=== PATIENT | male | born 1935 | race Caucasian/White ===

== ENCOUNTER 2018-09-13 19:42 | Outpatient (CLI) | payer MEDICARE, BC | END 2018-09-13 19:43 | disposition short-term general hospital (02) | LOC: EMS 19:42 | PROVIDERS: ATTEND Surgery | DX: R53.83 Other fatigue (principal); R53.1 Weakness; R63.0 Anorexia | CPT/HCPCS: A0425; A0429 ==

== ENCOUNTER 2018-09-27 12:15 | Outpatient (CLI) | payer MEDICARE, BC ==
--- NOTE | 2018-09-27 15:49 | MRI Report ---
Reason: IMPAIRMENT OF BALANCE Procedure Date: 09/27/2018 Accession Number: [id number] / [id number] Procedure: MRI - Brain W/O CPT Code: FULL RESULT: EXAM: MRI BRAIN WITHOUT CONTRAST EXAM DATE: 09/27/2018 01:12 PM. CLINICAL HISTORY: IMPAIRMENT OF BALANCE. COMPARISON: None. TECHNIQUE: Multiplanar, multisequence T1-weighted and fluid-sensitive MR sequences of the brain were performed. Sequences optimized for routine evaluation. Other: None. IV Contrast: None. FINDINGS: The diffusion-weighted images are normal. There is no evidence of acute or subacute cerebral infarction. The FLAIR images demonstrate a few punctuate T2 hyperintensities within the subcortical, deep, and periventricular white matter. This is consistent with a minimal degree of chronic small vessel ischemia. There is enlargement of the lateral ventricles and the third ventricle but not out of proportion to the enlargement of the cerebral sulci. This is consistent with a mild degree of generalized volume loss. The T2* sequence is normal. There is no evidence of subacute or chronic hemorrhage. The corpus callosum is of normal size and configuration. The pituitary and sella are normal. The craniocervical junction is normal. The optic nerves demonstrate symmetric signal intensity and size. The cerebral vascular flow voids are patent. The bilateral parotid spaces exhibit normal signal intensity. The imaged portions of the paranasal sinuses are normally aerated. There is a normal appearance of the nerve exit zone, cisternal and internal auditory canal segments of the bilateral 7th and 8th cranial nerves. There is a normal appearance of the nerve exit zone and cisternal segments of the bilateral trigeminal nerve and Meckel's cave. IMPRESSION: 1. There is no evidence of acute or subacute cerebral infarction. 2. There is minimal degree of chronic small vessel ischemia and mild degree of generalized volume loss. 3. There is no evidence of brain mass. 4. There is a normal appearance of the course of the bilateral fifth, seventh, and eighth cranial nerves. There is no cerebellopontine angle mass or internal auditory canal mass .
== END 2018-09-27 12:16 | disposition home or self-care (01) ==
LOC: DI 12:15
PROVIDERS: ATTEND Physician Assistant
DX: R26.89 Other abnormalities of gait and mobility (principal); I67.82 Cerebral ischemia
CPT/HCPCS: 70551

== ENCOUNTER 2020-10-14 13:38 | Outpatient (CLI) | payer MEDICARE, BC ==
[2020-10-14 20:03] LABS: BASOPHILS % (AUTO) 0.3 %; EOSINOPHILS % (AUTO) 0.5 %; HCT - HEMATOCRIT 45.9 % (42.0-52.0); HGB - HEMOGLOBIN 15.2 g/dL (14.0-18.0); LYMPHOCYTES # (AUTO) 1.2 10^3/uL (1.5-3.5); LYMPHOCYTES % (AUTO) 21.2 %; MEAN CORPUSCULAR HEMOGLOBIN 31.3 pg (27.0-31.0); MEAN CORPUSCULAR HGB CONC 33.1 g/dL (32.0-36.0); MEAN CORPUSCULAR VOLUME 94.6 fL (80.0-94.0); MEAN PLATELET VOLUME 10.1 fL (7.4-11.4); MONOCYTES # (AUTO) 0.4 10^3/uL (0.0-1.0); MONOCYTES % (AUTO) 7.5 %; NEUTROPHILS # (AUTO) 4.1 10^3/uL (1.5-6.6); NEUTROPHILS % (AUTO) 70.3 %; PLT - PLATELET COUNT 214 10^3/uL (130-450); RED BLOOD COUNT 4.85 10^6/uL (4.70-6.10); WHITE BLOOD COUNT 5.8 x10^3/uL (4.8-10.8)
[2020-10-14 20:21] LABS: ALBUMIN 3.8 g/dL (3.2-5.5); ALBUMIN/GLOBULIN RATIO 1.2 (1.0-2.2); ALKALINE PHOSPHATASE 77 IU/L (42-121); ALT ALANINE AMINOTRANSFERASE 19 IU/L (10-60); AST ASPARTATE AMINOTRANSFERASE 22 IU/L (10-42); BILIRUBIN,TOTAL 0.7 mg/dL (0.2-1.0); BUN - BLOOD UREA NITROGEN 11 mg/dL (6-20); CALCIUM 8.8 mg/dL (8.5-10.3); CARBON DIOXIDE - CO2 30 mmol/L (21-32); CHLORIDE 99 mmol/L (101-111); CHOL/HDL RATIO 4.5 (<5.0); CHOLESTEROL 230 mg/dL; CREATININE 0.7 mg/dL (0.6-1.2); GFR - MDRD 108 (>89); GLUCOSE 158 mg/dL (70-100); HDL CHOLESTEROL 51 mg/dL; LDL CHOLESTEROL,CALCULATED 139 mg/dL; LDL/HDL RATIO 2.7 (<3.6); POTASSIUM 4.1 mmol/L (3.5-5.0); SODIUM 138 mmol/L (135-145); TOTAL PROTEIN 6.9 g/dL (6.7-8.2); TRIGLYCERIDES 202 mg/dL; VLDL CHOLESTEROL 40 mg/dL
[2020-10-14 20:29] LABS: PSA TOTAL 0.62 ng/mL (0.000-2.000)
== END 2020-10-14 13:39 | disposition home or self-care (01) ==
LOC: LAB.S 13:38
PROVIDERS: ATTEND Nurse Practitioner Family
DX: R42 Dizziness and giddiness (principal); E78.5 Hyperlipidemia, unspecified; Z51.81 Encounter for therapeutic drug level monitoring; N40.0 Benign prostatic hyperplasia without lower urinary tract symptoms
CPT/HCPCS: 36415; 80053; 80061; 82306; 83721; 84153; 85025

== ENCOUNTER 2020-11-28 15:42 | Outpatient (CLI) | payer MEDICARE, BC | END 2020-11-28 15:43 | disposition home or self-care (01) | LOC: COV 15:42 | PROVIDERS: ATTEND Internal Medicine Cardiovascular Disease | DX: Z01.812 Encounter for preprocedural laboratory examination (principal); Z20.822 Contact with and (suspected) exposure to COVID-19 ==

== ENCOUNTER 2021-04-15 15:49 | Outpatient (CLI) | payer MEDICARE, BC ==
--- NOTE | 2021-04-16 11:45 | XRAY Report ---
PROCEDURE: Lumbar Spine 2 View INDICATIONS: LOW BACK PAIN TECHNIQUE: 3 views of the lumbar spine were acquired. COMPARISON: None. FINDINGS: Bones: There is transitional anatomy with 4 [id number] vertebrae present and sacralization of L 5. Rudimentary disc is present at L5-S1. There is mild grade 1 anterolisthesis at L4-5. Minimal list hesis demonstrated at T12-L1 and L1-L2. No vertebral body compression fractures. No other definite fr actures identified. There is multilevel mild to moderate degenerative disc disease throughout the lum bar spine. There is also moderate facet arthropathy in the lower lumbar spine is prominent L4-5. No s uspicious bony lesions. Soft tissues: Overlying bowel gas pattern is normal. There are diffuse vascular calcifications. IMPRESSION: 1. No acute fractures identified. 2. Transitional anatomy with sacralization of L5. 3. Mild grade 1 anterolisthesis at L4-5 without a displaced pars defect identified. 4. Minimal retrolisthesis at T12-L1 and L1-L2. Reviewed by: Abhi Puri MD on 04/16/2021 11:44 AM PST Approved by: Abhi Puri MD on 04/16/2021 11:44 AM PST Station ID: [id number]
== END 2021-04-15 15:50 | disposition home or self-care (01) ==
LOC: DI.S 15:49
PROVIDERS: ATTEND Physician Assistant
DX: M51.36 Other intervertebral disc degeneration, lumbar region (principal); M47.816 Spondylosis without myelopathy or radiculopathy, lumbar region; M43.16 Spondylolisthesis, lumbar region; M43.15 Spondylolisthesis, thoracolumbar region

== ENCOUNTER 2022-08-27 12:13 | Outpatient (CLI) | payer MEDICARE, BC ==
[2022-08-27] MEDS ORDERED: iohexoL-300 100 ML VIAL ONE (12:40)
[2022-08-27 12:48] LABS: ALBUMIN 3.6 g/dL (3.2-5.5); ALBUMIN/GLOBULIN RATIO 1.2 (1.0-2.2); CALCIUM 8.8 mg/dL (8.5-10.3); CREATININE 0.8 mg/dL (0.6-1.2); TOTAL PROTEIN 6.6 g/dL (6.7-8.2)
--- NOTE | 2022-08-27 14:28 | CT Report ---
PROCEDURE: ANGIO CHEST W/WO INDICATIONS: ELEVATED D DIMER CONTRAST: 80ml omni 300 TECHNIQUE: After the administration of intravenous contrast, 2 mm axial images were acquired from the pulmonary apices to the posterior costophrenic angles during the arterial phase. In addition, 1 mm lung kernel and 5 mm soft tissue kernel reconstructions were performed. 3-dimensional coronal oblique maximum int ensity projection (MIP) reformats, 8 mm axial MIP, and 5 mm coronal and sagittal MPR reformats were t hen performed through the thorax. For radiation dose reduction, the following was used: automated exp osure control, adjustment of mA and/or kV according to patient size. COMPARISON: Same-day chest radiograph FINDINGS: Image quality: Motion artifact is present Lungs and pleura:Mild bilateral groundglass opacities, most notably. Scattered scarring and atelectas is. Moderate bilateral effusions. Mediastinum, heart, and esophagus: Distal pulmonary arteries are not well-seen due to motion artifact . Aorta is not well assessed on this study. There is cardiomegaly and coronary calcifications. No pat hologic lymph nodes by size criteria. No hiatal hernia. Chest wall and thyroid: Unremarkable Upper abdomen: Reflux of contrast suggestive of chronically high right heart pressures. No gross abno rmality on these limited arterial phase images. A 1 cm left adrenal nodule is present. Bones: No acute or suspicious osseous finding. There are rib deformities that do not appear acute. Th ere are sternotomy wires. IMPRESSION: No acute pulmonary embolism in the central arteries. The distal arteries are obscured by motion artif act. Mild diffuse lung disease. Moderate bilateral pleural effusions. Findings could represent edema. Cardiomegaly. Coronary calcifications. Reviewed by: Tristin Gresham MD on 08/27/2022 2:27 PM PDT Approved by: Tristin Gresham MD on 08/27/2022 2:27 PM PDT Station ID: [id number]
--- NOTE | 2022-08-27 14:51 | XRAY Report ---
PROCEDURE: Chest 2 View X-Ray INDICATIONS: ELEVATED D DIMER TECHNIQUE: 2 views of the chest were acquired. COMPARISON: None. FINDINGS: Surgical changes and devices: Patient is status post median sternotomy and CABG. Lungs and pleura: Diffuse reticular opacities are present in a peripheral distribution suggesting fi brotic change. There is blunting of the bilateral costophrenic sulci ingesting pleural scarring or sm all effusions. Lung volumes are large and there is a paucity of vessels in the upper lungs suggesting emphysematous changes. Mediastinum: Mediastinal contours appear normal. Heart size is enlarged. Bones and chest wall: No suspicious bony lesions. Overlying soft tissues appear unremarkable. IMPRESSION: 1. No acute airspace opacities. 2. Findings suspicious for pulmonary fibrosis and emphysema. 3. Blunting at the costophrenic sulci suggesting pleural scarring or small effusions. Reviewed by: Aide Ross MD on 08/27/2022 2:50 PM PDT Approved by: Aide Ross MD on 08/27/2022 2:50 PM PDT Station ID: [id number]
[2022-08-27] MEDS ORDERED: iohexoL-300 100 ML VIAL IVP ONE (15:51)
== END 2022-08-27 12:14 | disposition home or self-care (01) ==
LOC: LAB 12:13
PROVIDERS: ATTEND Nurse Practitioner Family
DX: R79.1 Abnormal coagulation profile (principal); J90 Pleural effusion, not elsewhere classified; I51.7 Cardiomegaly; I25.10 Atherosclerotic heart disease of native coronary artery without angina pectoris; J98.4 Other disorders of lung
CPT/HCPCS: 36415; 71046; 71275; 80053; Q9967